=== PATIENT | female | born 1965 | race Caucasian/White ===

== ENCOUNTER → 2016-05-28 | Day surgery (SDC) | payer BC ==
[~2016-05-28] VITALS: Ht 162.6 cm; Wt 74.8 kg
[~2016-05-28] MED LIST: ATIVAN0.5 MG PO; CALTRATE 600MG600 MG PO; COLACE100 MG PO; CRESTOR10 MG PO; DEXILANT60 MG PO; EFFEXOR XR75 MG PO; FOLIC ACID1 MG PO; HUMIRA PEN; HUMIRA40 MG/0.8 SQ; KEFLEX500 MG PO; LEVOCETIRIZINE D5 MG PO; METHOTREXA25 MG/1 ML INJ; METHOTREXATE; MINIVELLE1 EAC1 TD; NUCYNTA50 MG PO; PANTOPRAZOLE SO20 MG PO; PERCOCET 5-3251 EACH PO; PROVENTIL HFA 61 INH INH; REPLAX PO; REXULTI PO; SYNTHROID100 MCG PO; SYNTHROID112 MCG PO; TIZANIDINE HCL4 M1 PO; TIZANIDINE HCL4 MG PO; TOPAMAX50 MG PO; VENLAFAXINE HC100 MG PO; VIT D3 PO; VITAMIN D PO; ZOFRAN4 MG PO
== END | disposition home or self-care (01) ==
LOC: OR 06:22
PROVIDERS: Internal Medicine Gastroenterology
PROC: 0DB68ZX Excision of Stomach, Via Natural or Artificial Opening Endoscopic, Diagnostic (ICD-10-PCS; 2016-05-28)
PROC: 0DB38ZX Excision of Lower Esophagus, Via Natural or Artificial Opening Endoscopic, Diagnostic (ICD-10-PCS; principal; 2016-05-28 13:45)
DX: K29.50 Unspecified chronic gastritis without bleeding (principal); K22.70 Barrett's esophagus without dysplasia; K20.8 Other esophagitis; K44.9 Diaphragmatic hernia without obstruction or gangrene; J44.9 Chronic obstructive pulmonary disease, unspecified; K21.9 Gastro-esophageal reflux disease without esophagitis; G43.909 Migraine, unspecified, not intractable, without status migrainosus; G89.29 Other chronic pain; M54.9 Dorsalgia, unspecified; M19.90 Unspecified osteoarthritis, unspecified site; F41.9 Anxiety disorder, unspecified; F32.9 Major depressive disorder, single episode, unspecified; F17.210 Nicotine dependence, cigarettes, uncomplicated; Z83.3 Family history of diabetes mellitus; Z82.49 Family history of ischemic heart disease and other diseases of the circulatory system; Z82.3 Family history of stroke; Z90.49 Acquired absence of other specified parts of digestive tract; Z90.710 Acquired absence of both cervix and uterus; Z98.890 Other specified postprocedural states
CPT/HCPCS: J2250; J3010; J7030

== ENCOUNTER → 2016-09-11 | Outpatient (CLI) | payer BC ==
[2016-09-11 10:10] LABS: HEMOGLOBIN 15.6 gm/dl (12.3-15.3); RED BLOOD COUNT 5.04 M/UL (4.00-5.10); WHITE BLOOD COUNT 12.2 K/UL (4.5-11.0)
[2016-09-11 10:44] LABS: BUN/CREATININE RATIO 15 (0-10)
== END ==
LOC: LAB 09:48
PROVIDERS: Family Medicine
DX: E03.9 Hypothyroidism, unspecified (principal); E55.9 Vitamin D deficiency, unspecified; E53.8 Deficiency of other specified B group vitamins; E78.5 Hyperlipidemia, unspecified
CPT/HCPCS: 36415; 80053; 80061; 82607; 84439; 84443; 85025

== ENCOUNTER → 2016-12-03 | Outpatient (CLI) | payer BC | LOC: KOH-I 09:36 | DX: M66.371 Spontaneous rupture of flexor tendons, right ankle and foot (principal); R60.0 Localized edema | CPT/HCPCS: 73721 ==

== ENCOUNTER → 2020-05-24 | Outpatient (CLI) | payer BC ==
[~2020-05-24] MED LIST changes: +ALBUTEROL1.25 MG/3 INH; +BENTYL 20MG TAB20 MG PO; +DETROL1 MG PO; +ESTRACE1 MG PO; +HYDROCODON-ACE1 EAC4 PO; +K-TAB ER20 MEQ PO; +NEURONTIN 300300 MG PO; +PERCOCET 5/325 T1 EA PO; +PROGESTERONE200 MG PO; +PROMETRIUM 200200 MG PO; +RELPAX40 MG PO; +REMICADE I100 MG/VIA INJ; +TROKENDI XR100 MG PO; +VITAMIN B-121000 MCG PO; +VITAMIN D350000 UNIT PO; +XYZAL5 MG PO; +ZOFRAN ODT 4 MG4 MG GT
== END ==
LOC: EXRD 05-16 10:15
DX: R10.13 Epigastric pain (principal); R93.3 Abnormal findings on diagnostic imaging of other parts of digestive tract
CPT/HCPCS: 76705

== ENCOUNTER → 2020-10-06 | Outpatient (CLI) | payer BC | LOC: KOH-I 13:28 | DX: M51.16 Intervertebral disc disorders with radiculopathy, lumbar region (principal); M51.17 Intervertebral disc disorders with radiculopathy, lumbosacral region | CPT/HCPCS: 72148 ==

== ENCOUNTER → 2020-12-07 | Outpatient (CLI) | payer BC | LOC: MRI 10:05 → CT 10:30 | DX: R93.3 Abnormal findings on diagnostic imaging of other parts of digestive tract (principal); K86.9 Disease of pancreas, unspecified | CPT/HCPCS: 74183; A9577 ==

== ENCOUNTER → 2020-12-23 | Outpatient (CLI) | payer BC | LOC: KOH-I 14:51 | DX: F17.210 Nicotine dependence, cigarettes, uncomplicated (principal) | CPT/HCPCS: 71271 ==

== ENCOUNTER → 2021-01-27 | Outpatient (CLI) | payer BC | LOC: KOH-I 09:52 | DX: M50.30 Other cervical disc degeneration, unspecified cervical region (principal); M79.602 Pain in left arm; R20.2 Paresthesia of skin; M47.812 Spondylosis without myelopathy or radiculopathy, cervical region; M48.02 Spinal stenosis, cervical region | CPT/HCPCS: 72141 ==

== ENCOUNTER → 2021-03-20 | Outpatient (CLI) | payer BC | LOC: KOH-I 14:36 | DX: M25.551 Pain in right hip (principal); M87.851 Other osteonecrosis, right femur | CPT/HCPCS: 73721 ==

== ENCOUNTER → 2021-05-18 | Outpatient (CLI) | payer BC ==
[~2021-05-18] MED LIST changes: +AMLODIPINE BESYL5 MG PO; +BREZTRI; +CIMZIA400 MG SQ; +COLESTIPOL HCL1 GM PO; +ESCITALOPRAM OX20 MG PO; +LANREOTIDE; +PREDNISONE 10 M10 MG PO; +SEROQUEL50 MG PO; -SYNTHROID100 MCG PO; +SYNTHROID200 MCG PO; +TRAZODONE HCL50 MG PO
[2021-05-18 11:10] LABS: HEMOGLOBIN 15.2 gm/dl (12.3-15.3); RED BLOOD COUNT 5.16 M/UL (4.00-5.10); WHITE BLOOD COUNT 12.3 K/UL (4.5-11.0)
[2021-05-18 11:25] LABS: BUN/CREATININE RATIO 18 (0-10)
== END ==
LOC: OPSV2 10:18
PROVIDERS: Orthopaedic Surgery
DX: Z01.818 Encounter for other preprocedural examination (principal); M87.9 Osteonecrosis, unspecified
CPT/HCPCS: 36415; 80048; 85025; 85652; 86140; 93005

== ENCOUNTER 2021-07-27 13:23 | Inpatient (IN) | payer BC ==
[~2021-07-27] VITALS: Ht 162.6 cm; Wt 66.2 kg
[~2021-07-27 13:23] MED LIST changes: -BREZTRI; -CIMZIA400 MG SQ; +CIMZIA400 MG/2 M SQ; -LANREOTIDE; +LANREOTIDE120 MG/0.5 SQ; -PREDNISONE 10 M10 MG PO; -TRAZODONE HCL50 MG PO
[2021-07-27 15:47] LABS: HEMOGLOBIN 15.2 gm/dl (12.3-15.3); RED BLOOD COUNT 5.2 M/UL (4.00-5.10); WHITE BLOOD COUNT 13.8 K/UL (4.5-11.0)
[2021-07-27 16:43] LABS: BUN/CREATININE RATIO 18 (0-10)
[2021-07-28] MEDS ORDERED: TRAZODONE HCL50 MG PO (11:05)
[2021-07-28] MEDS ORDERED: BREZTRI AEROS10.7 GM INH (11:06)
[2021-07-28] MEDS ORDERED: PREDNISONE 10 M10 MG PO (11:08)
[2021-07-28] MEDS ORDERED: OMEPRAZOLE40 MG PO (11:10)
[2021-07-28 12:39] LABS: HEMOGLOBIN 14.6 gm/dl (12.3-15.3); RED BLOOD COUNT 5.09 M/UL (4.00-5.10); WHITE BLOOD COUNT 15.4 K/UL (4.5-11.0)
[2021-07-28 12:55] LABS: BUN/CREATININE RATIO 17 (0-10)
[2021-07-29 03:33] LABS: HEMOGLOBIN 14.6 gm/dl (12.3-15.3); RED BLOOD COUNT 5.06 M/UL (4.00-5.10); WHITE BLOOD COUNT 17.6 K/UL (4.5-11.0)
[2021-07-29 03:51] LABS: BUN/CREATININE RATIO 21 (0-10)
[2021-07-29] MEDS ORDERED: HEMADY20 MG PO (11:39)
[2021-07-29] MEDS ORDERED: LEVOTHYROXINE150 MC1 PO (11:55)
[2021-07-29] MEDS ORDERED: DEXAMETHASONE6 MG PO (18:09)
== END 2021-07-29 15:04 | disposition home or self-care (01) | DRG 813 ==
LOC: ER1 13:23 → CDU 19:07 → MED SURG 4 21:10
PROVIDERS: Student in an Organized Health Care Education/Training Program; ADMIT Internal Medicine
PROC: 3E0333Z Introduction of Anti-inflammatory into Peripheral Vein, Percutaneous Approach (ICD-10-PCS; principal; 2021-07-27)
DX: D69.3 Immune thrombocytopenic purpura (principal); J18.9 Pneumonia, unspecified organism; Z20.822 Contact with and (suspected) exposure to COVID-19; C7A.8 Other malignant neuroendocrine tumors; D84.9 Immunodeficiency, unspecified; E23.0 Hypopituitarism; M06.9 Rheumatoid arthritis, unspecified; L40.50 Arthropathic psoriasis, unspecified; E78.5 Hyperlipidemia, unspecified; G89.29 Other chronic pain; M79.7 Fibromyalgia; F32.A Depression, unspecified; K58.9 Irritable bowel syndrome, unspecified; E03.8 Other specified hypothyroidism; F41.9 Anxiety disorder, unspecified; F17.210 Nicotine dependence, cigarettes, uncomplicated; G47.00 Insomnia, unspecified; Z98.890 Other specified postprocedural states; Z87.19 Personal history of other diseases of the digestive system
CPT/HCPCS: 36415; 71045; 80048; 80053; 81001; 82024; 82533; 82550; 82553; 83605; 84439; 84443; 84481; 84484; 85025; 86140; 86850; 86900; 86901; 87040; 96374; 99285; J0692; J1100

== ENCOUNTER → 2021-08-19 | Outpatient (CLI) | payer BC ==
[~2021-08-19] MED LIST changes: +BREZTRI AEROS10.7 GM INH; +DEXAMETHASONE6 MG PO; +HEMADY20 MG PO; +LEVOTHYROXINE150 MC1 PO; +OMEPRAZOLE40 MG PO; +PREDNISONE 10 M10 MG PO; +TRAZODONE HCL50 MG PO
[2021-08-19 16:45] LABS: HEMOGLOBIN 15.1 gm/dl (12.3-15.3); RED BLOOD COUNT 5.16 M/UL (4.00-5.10); WHITE BLOOD COUNT 18.2 K/UL (4.5-11.0)
== END ==
LOC: LAB 16:15
PROVIDERS: Internal Medicine
DX: C7A.1 Malignant poorly differentiated neuroendocrine tumors (principal); R93.3 Abnormal findings on diagnostic imaging of other parts of digestive tract
CPT/HCPCS: 85027

== ENCOUNTER → 2021-11-17 | Outpatient (CLI) | payer BC | LOC: MAMO 10:00 | DX: Z12.31 Encounter for screening mammogram for malignant neoplasm of breast (principal) | CPT/HCPCS: 77063; 77067 ==

== ENCOUNTER 2021-11-28 16:41 | Emergency (ER) | payer BC ==
[2021-11-28 18:34] LABS: HEMOGLOBIN 15.6 gm/dl (12.3-15.3); RED BLOOD COUNT 5.2 M/UL (4.00-5.10)
[2021-11-28 19:01] LABS: BUN/CREATININE RATIO 20 (0-10)
== END 2021-11-28 23:26 | disposition home or self-care (01) ==
LOC: ER1 16:41
PROVIDERS: Physician Assistant
DX: R30.0 Dysuria (principal); R35.0 Frequency of micturition; F17.210 Nicotine dependence, cigarettes, uncomplicated; Z88.5 Allergy status to narcotic agent
CPT/HCPCS: 80053; 81001; 85025; 99284; Q9967

== ENCOUNTER 2021-12-03 22:00 | Emergency (ER) | payer BC ==
[2021-12-03 23:37] LABS: HEMOGLOBIN 15.9 gm/dl (12.3-15.3); RED BLOOD COUNT 5.26 M/UL (4.00-5.10); WHITE BLOOD COUNT 16.4 K/UL (4.5-11.0)
[2021-12-04 00:03] LABS: BUN/CREATININE RATIO 14 (0-10)
[2021-12-04] MEDS ORDERED: VOLTAREN ARTHRI20 GM TP (04:17)
[2021-12-04] MEDS ORDERED: NORFLEX 100 MG100 MG PO (04:17)
[2021-12-04] MEDS ORDERED: ZOFRAN 4 MG TAB4 MG PO (04:17)
== END 2021-12-04 04:25 | disposition home or self-care (01) ==
LOC: ER1 22:00
PROVIDERS: Physician Assistant Medical
DX: R10.84 Generalized abdominal pain (principal); R11.2 Nausea with vomiting, unspecified; M87.9 Osteonecrosis, unspecified; I10 Essential (primary) hypertension; F17.210 Nicotine dependence, cigarettes, uncomplicated; Z85.07 Personal history of malignant neoplasm of pancreas; Z88.5 Allergy status to narcotic agent; Z88.1 Allergy status to other antibiotic agents
CPT/HCPCS: 73502; 74018; 80053; 81001; 83605; 83690; 85025; 85652; 86140; 96374; 96375; 99284; J1170; J2405; Q9967